=== PATIENT | male | born 1950 | race American Indian/Alaskan Native ===

== ENCOUNTER 2016-07-04 10:54 | Day surgery (SDC) | payer BC ==
[~2016-07-04 10:54] MED LIST: TETRACAINE 0.5% OD PRN
[2016-07-04] MEDS ORDERED: NACL BACTERIOSTATIC INFILTRATI ONE (11:37)
[2016-07-04] MEDS: MYDRIACYL OD SCH ×3 (11:50→12:00)
[2016-07-04] MEDS: VIGAMOX OD SCH ×3 (11:50→12:00)
[2016-07-04] MEDS: AK-Dilate OD SCH ×3 (11:50→12:00)
--- NOTE | 2016-07-04 12:00 | Anesthesia Consultation ---
Anesthesia Consult and Med Hx Date of service: 07/04/16 - Airway Anesthetic Teeth Evaluation: Good, Partials (upper) ROM Head & Neck: Adequate Mental/Hyoid Distance: Adequate Mallampati Class: Class II Intubation Access Assessment: Probably Good - Pulmonary Exam CTA: Yes - Cardiac Exam Cardiac Exam: RRR - Pre-Operative Health Status ASA Pre-Surgery Classification: ASA2 Proposed Anesthetic Plan: MAC - Pulmonary Hx Smoking: Yes (former, quit 18 yrs ago) - Cardiovascular System Hx Hypertension: Yes - Central Nervous System Hx Back Pain: Yes Hx Psychiatric Problems: No - Other Systems Hx Alcohol Use: Yes (occas) Hx Cancer: No
--- NOTE | 2016-07-04 12:00 | Anesthesia Day of Surgery ---
Anesthesia Day of Surgery - Day of Surgery Patient Examined: Yes Patient H&P Reviewed: Yes Patient is NPO: Yes
[2016-07-04] MEDS ORDERED: SUBLIMAZE ONE ×2 (13:22→13:57)
[2016-07-04] MEDS ORDERED: VERSED ONE ×2 (13:23→13:52)
[2016-07-04] MEDS ORDERED: VISION BLUE IO ONE ×2 (13:34→13:41)
[2016-07-04] MEDS ORDERED: NACL P/F VIAL (10 ML) 10 ML ONE (13:58)
[2016-07-04] MEDS ORDERED: MIOSTAT OD ONE ×2 (14:03)
[2016-07-04] MEDS ORDERED: XYLOCAINE 1% MPF 5 mL IJ ONE (14:03)
[2016-07-04] MEDS ORDERED: DIPRIVAN 10 MG/ML IV ONE ×2 (14:10→14:21)
[2016-07-04] MEDS ORDERED: DECADRON ONE (14:43)
--- NOTE | 2016-07-04 15:18 | Operative Report ---
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 ANESTHESIA: Monitored anesthesia care in combination with topical and intracameral anesthesia because of the established specific risk of reflux, arrhythmias, or anxiety attacks associated with ocular manipulation, as well as the difficulty of the paid search manager to manage such potentially catastrophic events while simultaneously attempting to complete the surgical procedure and was deemed necessary for the patient's safety to have a Nurse Ore Trimmer present during the procedure whenever possible. A Nurse Ore Trimmer was utilized to regulate the intravenous sedation of the patient so the patient was cooperative yet not asleep in order for the patient to successfully maintain fixation of the eye on the operating light of the microscope. COMPLICATIONS: No surgical complications. No blood loss. ALLERGIES: No known drug allergies PROGNOSIS: Excellent INDICATIONS FOR SURGERY: The patient is undergoing surgery in the hopes of eliminating or improving these visual difficulties. PROCEDURE: Prior to surgery, the patient was instructed to use Acular drops one drop four times daily before surgery. After arriving at the surgery center , the patient was given topical anesthetic and dilating drops, as noted in the record. The patient was then taken into the operating room and given more anesthetic drops. The eyelids, lashes, and lid margins were scrubbed with Betadine solution, and the patient was draped. The Nurse Ore Trimmer administered IV sedation and monitored the patient during the procedure. A speculum was placed between the eyelids, and the patient was asked to fixate on the light of the microscope. The eye was then fixated with a round bender, which would damage the conjunctival tissues or vessel, and a stab incision was made in the peripheral clear cornea into the anterior chamber. This was made on my left side. Next through this incision, 1% nonpreserved Xylocaine was irrigated in to the eye to provide further anesthesia. Viscoelastic was next used to fill the anterior chamber. The eye was once again fixated with the round bender and a keratome was used make an incision in clear cornea peripherally on my right hand side temporally.Because of the nature of the cataract and poor visualization of the anterior capsule, it was decided that a dye should be used to stain the capsule for better visualization of the capsule during the capsulorrhexis. After the Xylocaine was injected into the eye and prior to placing viscoelastic into the eye, air was injected through the stab incision and used to fill the anterior chamber. Then a cannula was inserted into the stab incision and VisionBlue dye was irrigated over the anterior capsule of the natural lens allowing the entire anterior lens capsule to be coated with the dye. The viscoelastic was next place in the eye as noted above and as this was done, the air was pushed out through the stab incision. The capsule remained colored from the dye and this allowed good visualization of the capsule tear as it progressed. When the viscoelastic was injected as noted above, instead of using one cohesive viscoelastic, a special viscoelastic system was used to fill the anterior chamber. 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 Viscoat was first injected into the anterior chamber coating the posterior surface of the cornea. Provisc was then injected between the anterior capsule and the Viscoat. This pushed the Viscoat completely against the endothelium and into the angular area. The Provisc will come out as the phacoemulsification starts, but the Viscoat will remain in place during the procedure to protect the endothelium and the cornea. The capsule forceps were used to open the central anterior capsule tenting was noted and the zonular dehiscence was noted to be about 50% of the zonules. A lens loop was used to remove the lens after the keratome was used to extend the main incision to about 7mm. Vitreous protruded through the pupil after removing the cataract.. Therefore, a mechanical vitrectomy was indicated. An approach consistent with the surgery was performed utilizing a vitrectomy unit and a continuous infusion of balanced salt solution. A fiberoptic light source was used to allow the visualization of the vitreous strands, which would not be possible without the extra lighting. The vitrectomy was performed carefully to avoid placing undue traction on the retina. As much vitreous was removed as possible with this approach. An estimated 50-60% of the vitreous was removed. The vitreous base along the retinal surface, especially in the areas with scleral folds indenting towards the interior of the eye, was left intact. Vitreous was removed from the pupillary margin and cleaned off of the anterior surface of the iris. In order to provide constriction of the pupil and improved vision, Carbachol was injected into the anterior chamber to constrict the pupil. IOL INSERT: ONE-PIECE PMMA LENS brought into the operative field. Due to special considerations with the patient 's eye, it was decided to use a one-piece PMMA lens. The wound was extended to 6 mm. The lens was coated with viscoelastic and then inserted into the eye and placed in the eye, as noted, in the anterior chamber. At PI was done with 30 gauge needle . After placement of the intraocular lens, the I and A handpiece was placed back into the eye and used to remove the viscoelastic, including viscoelastic that was behind the optic of the intraocular lens. The anterior chamber was then filled with balanced salt solution, and hydration of the wound was used to cause swelling of the wound and more appropriate watertight closure. When the wound was found to be firm, the patient was asked to comment on how bright the light was. If there was no light perception at all or if the light was substantially dimmer than during the rest of the surgery, the amount of fluid in the eye was decompressed to lower the intraocular pressure until the patient could see the bright light again. This was done to avoid any damage or decreased blood flow to the optic nerve. 4 sutures were placed and the wound rechecked. MEDICATIONS APPLIED AT END OF SURGERY: vigamox, pred forte, and diamox 500mg IV 8mg of decadron The patient was given a shield to wear at night and was instructed not to rub or push on the eye. DISCHARGE SUMMARY: The patient was released in stable condition. The patient and those with the patient were given a written sheet of postoperative instructions and counseling on any abnormal laboratory studies. The patient is to see us tomorrow for follow-up in the office and is to call immediately for any difficulties. Preeti Ng M.D. Date
--- NOTE | 2016-07-04 15:19 | Short Stay Summary ---
Short Stay Documentation Date of service: 07/04/16 - History H&P: obtained from office - Allergies and Medications Current Medications: Allergies No Known Allergies Allergy (Unverified 07/03/16 19:49) Home Medications Medication Instructions Recorded Confirmed Last Taken Type Amlodipine Besylate [Amlodipine 10 mg PO QDAY 07/04/16 07/04/16 07/04/16 08:00 History Besylate] Aspirin [Aspirin EC] 81 mg PO QDAY 07/04/16 07/04/16 07/03/16 History Gabapentin [Gralise] 600 mg PO QDAY 07/04/16 07/04/16 07/03/16 History Lisinopril [Lisinopril] 40 mg PO QDAY 07/04/16 07/04/16 07/04/16 08:00 History Simvastatin [Simvastatin] 20 mg PO QDAY 07/04/16 07/04/16 07/03/16 History Tramadol HCl [traMADol] 50 mg PO QID PRN 07/04/16 07/04/16 07/02/16 History Active Medications Acetazolamide 500 mg/ Sodium (Chloride) 50 mls @ 200 mls/hr IV ONCE ONE Stop: 07/04/16 16:14 Moxifloxacin HCl (Vigamox) 1 drops OD Q5MIN [facility] Stop: 07/06/16 07:01 Last Admin: 07/04/16 12:00 Dose: 1 drops Phenylephrine HCl (Ak-Dilate) 1 drops OD Q5MIN [facility] Stop: 07/06/16 07:01 Last Admin: 07/04/16 12:00 Dose: 1 drops Prednisolone Acetate (Pred Forte 1%) 1 drops OD QID [facility] Tetracaine HCl (Tetracaine 0.5%) 1 drops OD Q5M PRN PRN Reason: Analgesia Last Admin: 07/04/16 11:50 Dose: 1 drops Tropicamide (Mydriacyl) 1 drops OD Q5MIN [facility] Stop: 07/06/16 07:01 Last Admin: 07/04/16 12:00 Dose: 1 drops - Brief post op/procedure progress note Date of procedure: 07/04/16 Pre-op diagnosis: cataract Post-op diagnosis: other (traumatic cataract) Anesthesia: MAC Surgeon: CIARA REYES Estimated blood loss: none Pathology: none Condition: stable - Disposition Condition at discharge: Good Disposition: DISCHARGED TO HOME OR SELFCARE - Discharge Diagnoses (1) Cataract Status: Resolved Qualifiers: Cataract type: traumatic Age-related cataract type: A Infantile/juvenile cataract type: I Traumatic cataract type: total Complicated cataract type: C Secondary cataract type: S Laterality: right Qualified Code(s): H26.131 - Total traumatic cataract, right eye Short Stay Discharge Plan Follow up with: LAI YOON MD [Primary Care Provider] - 7 Days
[2016-07-04] MEDS ORDERED: TYLENOL PO ONE (15:47)
[2016-07-04] MEDS ORDERED: NACL 0.9% IV ONE (16:00)
[2016-07-04] MEDS ORDERED: DIAMOX IV ONE (16:00)
--- NOTE | 2016-07-04 16:06 | Post Anesthesia Evaluation ---
- Post Anesthesia Evaluation Patient Participated: Yes Airway Patent: Yes Stable Respiratory Function: Yes Nausea/Vomiting: No Temp > 96.8F: Yes Pain Manageable: Yes Adequeate Hydration: Yes Anesthesia Complications: No Block Receding Appropriately: Not Applicable Patient on Ventilator: No
[2016-07-04] MEDS ORDERED: PRED FORTE 1% OD SCH (18:00)
[2016-07-04 18:06] VITALS: BP 139/84
[2016-07-04] MEDS ORDERED: DIAMOX IV SCH (22:00)
== END 2016-07-04 16:50 | disposition home or self-care (01) ==
LOC: OR 10:54
DX: H26.101 Unspecified traumatic cataract, right eye (principal); H18.51 Endothelial corneal dystrophy; I10 Essential (primary) hypertension; Z87.891 Personal history of nicotine dependence; Z72.89 Other problems related to lifestyle; Z79.899 Other long term (current) drug therapy
CPT/HCPCS: 66984; 67036; J1100; J1120; J2250; J2704; J3010; V2632

== ENCOUNTER 2016-12-05 08:45 | Day surgery (SDC) | payer BC ==
[2016-12-05] MEDS ORDERED: NACL BACTERIOSTATIC INFILTRATI ONE (10:31)
[2016-12-05] MEDS: MYDRIACYL OD SCH ×3 (10:40→10:50)
[2016-12-05] MEDS: VIGAMOX OD SCH ×3 (10:40→10:50)
[2016-12-05] MEDS: AK-Dilate OD SCH ×3 (10:40→10:50)
[2016-12-05] MEDS ORDERED: SUBLIMAZE ONE (10:43)
[2016-12-05] MEDS ORDERED: VERSED ONE (10:43)
[2016-12-05] MEDS ORDERED: DIPRIVAN 10 MG/ML IV ONE (10:44)
[2016-12-05] MEDS ORDERED: TETRACAINE 0.5% OD PRN (11:00)
--- NOTE | 2016-12-05 11:17 | Anesthesia Consultation ---
Anesthesia Consult and Med Hx Date of service: 12/05/16 - Airway Anesthetic Teeth Evaluation: Good ROM Head & Neck: Adequate Mental/Hyoid Distance: Adequate Mallampati Class: Class II Intubation Access Assessment: Probably Good - Pulmonary Exam CTA: Yes - Cardiac Exam Cardiac Exam: RRR - Pre-Operative Health Status ASA Pre-Surgery Classification: ASA2 Proposed Anesthetic Plan: MAC - Pulmonary Hx Smoking: Yes (former, quit 18 yrs ago) Hx Sleep Apnea: No (YAZMIN PRE SCREEN HIGH RISK) - Cardiovascular System Hx Hypertension: Yes - Central Nervous System Hx Back Pain: Yes - Other Systems Hx Alcohol Use: Yes (OCCASIONAL) Hx Cancer: No Hx Obesity: No - Additional Comments Anesthesia Medical History Comments: High Cholesterol
--- NOTE | 2016-12-05 11:18 | Anesthesia Day of Surgery ---
Anesthesia Day of Surgery - Day of Surgery Patient Examined: Yes Patient H&P Reviewed: Yes Patient is NPO: Yes
[2016-12-05] MEDS ORDERED: MIOSTAT OD ONE (13:04)
[2016-12-05] MEDS ORDERED: ANCEF ONE (13:33)
[2016-12-05] MEDS ORDERED: DECADRON ONE (13:40)
[2016-12-05] MEDS ORDERED: ZOFRAN ONE (13:40)
[2016-12-05] MEDS ORDERED: DIAMOX IV SCH ×2 (14:04→15:00)
--- NOTE | 2016-12-05 14:15 | Operative Report ---
Operative Report Operative Report: DATE OF SURGERY: 12/07/2016 PREOPERATIVE DIAGNOSIS: CORRECTOPIC PUPIL WITH PHOTOPHOBIA RIGHT EYE POSTOPERATIVE DIAGNOSIS: CORRECTOPIC PUPIL WITH PHOTOPHOBIA RIGHT EYE OPERATIVE PROCEDURE: Pupiloplasty RIGHT EYE SURGEON: Preeti Ng M.D. ANESTHESIA: GenERAL anesthesia care in combination with topical, because of the established specific risk of reflux,arrhythmias, or anxiety attacks associated with ocularmanipulation, as well as the difficulty of theophthalmologist to manage such potentially catastrophicevents while simultaneously attempting to complete thesurgical procedure and was deemed necessary for thepatient's safety to have a Nurse Chief Engineer Production present duringthe procedure whenever possible. A Nurse Chief Engineer Production wasutilized to regulate the intravenous sedation of the patient sothe patient was cooperative yet not asleep in order for thepatient to successfully maintain fixation of the eye on theoperating light of the microscope. COMPLICATIONS: No surgical complications. No blood loss. PREOPERATIVE NOTE: The patient is a male who was seen in the clinic complaining of poor vision, and photophobia following complicated cataract surgery. We have previously tried to surgery. The patient was very combative which is why we decided to proceed with general anesthesia. The risks discussed included but were not limited to retinal detachment, infection, loss of vision, loss of the eye. The patient had multiple opportunities to ask questions and have them answered. A preoperative instruction sheet was provided and explained to the patient and or family. PROGNOSIS: Excellent INDICATIONS FOR SURGERY: The patient is undergoingsurgery in the hopes of eliminating or improving these visual difficulties. PROCEDURE: After arriving at the HOSPITAL center, the patient was identified in the preoperative holding area. The patient confirmed the correct eye upon which surgery was to be performed, the eye was markedby the nursing staff and once more by me. The patient was given topical anesthetic drops, as noted in therecord. The patient was then taken into the operating room and given more anesthetic drops. The patient was placed in the supine position. General anesthesia was done without problem. The eyelids, lashes, and lid margins were scrubbed with Betadine solution, and the patient was draped. The machine paint mixer administered IV sedation and monitored the patient during the procedure.A speculum was placed between the eyelids, and the patient was asked to fixate on the light of the microscope. The previous cataract incision was reopened and then the anterior chamber IOL was removed from the eye. Viscoelastic had been inserted followed by insertion of Healon 5. The eye was then fixated with a 0.12 bender, and 9.0 Proline suture was passed from clear cornea to underthe iris came out of iris and then clear cornea. Through a 1.0 stab incision a Kruglin hook was passed to fish for the 2 prolene sutures and bring them out of the clear cornea incision. Once that was achieved the pieces were cut and tied in a 3-1-1 fashion. The process was repeated a second time right next to the firstone then again 180 degrees away. At the end of the case the pupil was smaller, the incisions were water tight and the patient was taken torecovery in stable condition. MEDICATIONS APPLIED AT END OF SURGERY: One drop of vigamox was placed in the eye. The patient was given a shield to wear at night and was instructed not to rub or push on the eye.DISCHARGE SUMMARY: The patient was released in stable condition. The patient and those with the patient were given a written sheet of postoperative instructions, voiced understanding of post operative verbal and written instructions and were given the opportunity to ask questions._ ____Preeti Ng M.D.
--- NOTE | 2016-12-05 14:25 | Short Stay Summary ---
Short Stay Documentation Date of service: 12/05/16 - History H&P: obtained from office - Allergies and Medications Current Medications: Allergies No Known Allergies Allergy (Verified 12/02/16 16:10) Home Medications Medication Instructions Recorded Confirmed Last Taken Type Amlodipine Besylate [Amlodipine 10 mg PO QDAY 07/04/16 12/05/16 12/03/16 History Besylate] Aspirin [Aspirin EC] 81 mg PO QDAY 07/04/16 12/05/16 12/03/16 History Gabapentin [Gralise] 600 mg PO QDAY 07/04/16 12/05/16 12/03/16 History Lisinopril [Lisinopril] 40 mg PO QDAY 07/04/16 12/05/16 12/03/16 History Simvastatin [Simvastatin] 20 mg PO QDAY 07/04/16 12/05/16 12/03/16 History Naproxen Sodium [Aleve TAB] 220 mg PO DAILY PRN 10/18/16 12/05/16 12/03/16 History Active Medications Acetazolamide (Diamox) 500 mg IV Q12HR [facility] Stop: 12/05/16 15:00 Acetazolamide 500 mg/ Sterile (Water) 5 mls @ 60 mls/hr IV Q12H [facility] Stop: 12/05/16 15:04 Moxifloxacin HCl (Vigamox) 1 drops OD Q5MIN [facility] Stop: 12/07/16 11:01 Last Admin: 12/05/16 10:50 Dose: 1 drops Phenylephrine HCl (Ak-Dilate) 1 drops OD Q5MIN [facility] Stop: 12/07/16 11:01 Last Admin: 12/05/16 10:50 Dose: 1 drops Prednisolone Acetate (Pred Forte 1%) 1 drops OD QID [facility] Tetracaine HCl (Tetracaine 0.5%) 1 drops OD Q5M PRN PRN Reason: Analgesia Last Admin: 12/05/16 10:40 Dose: 1 drops Tropicamide (Mydriacyl) 1 drops OD Q5MIN [facility] Stop: 12/07/16 11:01 Last Admin: 12/05/16 10:50 Dose: 1 drops - Brief post op/procedure progress note Date of procedure: 12/05/16 Pre-op diagnosis: corectopia and photophobia right eye Post-op diagnosis: same Procedure: Pupilloplasty right eye Anesthesia: GETA Surgeon: CIARA REYES Estimated blood loss: none Pathology: none Condition: stable - Disposition Condition at discharge: Good Disposition: DC-01 TO HOME OR SELFCARE - Discharge Diagnoses (1) Corectopia Status: Resolved (2) Photophobia of right eye Status: Resolved Short Stay Discharge Plan Follow up with: LAI YOON MD [Primary Care Provider] - 7 Days
[2016-12-05] MEDS ORDERED: DILAUDID ONE (14:37)
[2016-12-05] MEDS ORDERED: MORPHINE IV ONE (14:38)
[2016-12-05] MEDS ORDERED: WATER FOR INJ IV SCH (15:00)
[2016-12-05] MEDS ORDERED: APRESOLINE ONE (15:33)
[2016-12-05] MEDS ORDERED: PRED FORTE 1% OD SCH (18:00)
[2016-12-05 19:13] VITALS: BP 153/74
== END 2016-12-05 17:21 | disposition home or self-care (01) ==
LOC: OR 08:45
DX: H53.141 Visual discomfort, right eye (principal); Q13.2 Other congenital malformations of iris; G47.33 Obstructive sleep apnea (adult) (pediatric); I10 Essential (primary) hypertension; E78.00 Pure hypercholesterolemia, unspecified; M19.90 Unspecified osteoarthritis, unspecified site; Z87.891 Personal history of nicotine dependence; Z79.82 Long term (current) use of aspirin
CPT/HCPCS: 66682; J0360; J0690; J1100; J1120; J1170; J2250; J2270; J2405; J2704; J3010